=== PATIENT | male | born 1990 | race Two or more races ===

== ENCOUNTER 2022-04-21 17:53 | Emergency (ER) | payer OTHER ==
[~2022-04-21] VITALS: Ht 172.7 cm; Wt 133.8 kg
== END 2022-04-21 23:25 | disposition home or self-care (01) ==
LOC: ER 17:53
DX: K57.92 Diverticulitis of intestine, part unspecified, without perforation or abscess without bleeding (principal); Z91.013 Allergy to seafood

== ENCOUNTER 2022-05-24 22:22 | Emergency (ER) | payer OTHER ==
[~2022-05-24] VITALS: Ht 172.7 cm; Wt 73.5 kg
[2022-05-25] MEDS ORDERED: KETO10TA2 PO (02:15)
== END 2022-05-25 02:27 ==
LOC: ER 22:22
DX: N50.812 Left testicular pain (principal); Z91.013 Allergy to seafood; I86.1 Scrotal varices

== ENCOUNTER 2022-06-03 01:09 | Emergency (ER) | payer OTHER ==
[~2022-06-03] VITALS: Ht 167.6 cm; Wt 121.6 kg
[~2022-06-03 01:09] MED LIST: KETO10TA2 PO
[2022-06-03] MEDS ORDERED: ENALAPRIL MALEA10 MG PO (06:52)
== END 2022-06-03 06:58 ==
LOC: ER 01:09
DX: I10 Essential (primary) hypertension (principal); Z91.013 Allergy to seafood